=== PATIENT | female | born 1985 | race American Indian/Alaskan Native ===

== ENCOUNTER 2018-04-30 11:49 | Outpatient (CLI) | payer OTHER | END 2018-04-30 12:46 | disposition home or self-care (01) | LOC: NST 11:49 | DX: Z34.82 Encounter for supervision of other normal pregnancy, second trimester (principal) ==

== ENCOUNTER 2018-07-12 12:29 | Inpatient (IN) | payer OTHER ==
[~2018-07-12] VITALS: Ht 162.6 cm; Wt 82.6 kg
[2018-07-29] MEDS ORDERED: PRENATAL 19 TA1 EACH PO (03:31)
== END 2018-07-31 13:40 | DRG 807 ==
LOC: OB/GYN 07-28 15:00 → LDR 07-29 03:17 → OB/GYN 07-29 15:51
PROVIDERS: ADMIT Obstetrics & Gynecology
PROC: 10E0XZZ Delivery of Products of Conception, External Approach (ICD-10-PCS; principal; 2018-07-29)
PROC: 4A1HXCZ Monitoring of Products of Conception, Cardiac Rate, External Approach (ICD-10-PCS; 2018-07-29)
PROC: 0W8NXZZ Division of Female Perineum, External Approach (ICD-10-PCS; 2018-07-29)
PROC: 0UQGXZZ Repair Vagina, External Approach (ICD-10-PCS; 2018-07-29)
DX: O71.4 Obstetric high vaginal laceration alone (principal); Z37.0 Single live birth; Z3A.39 39 weeks gestation of pregnancy

== ENCOUNTER 2018-07-26 07:39 | Outpatient (CLI) | payer OTHER | END 2018-07-26 08:38 | disposition home or self-care (01) | LOC: NST 07:39 | DX: Z34.83 Encounter for supervision of other normal pregnancy, third trimester (principal) ==